=== PATIENT | male | born 1965 | race Caucasian/White ===

== ENCOUNTER 2021-10-16 22:33 | Emergency (ER) | payer BC ==
[2021-10-17 01:09] LABS: HEMOGLOBIN 14.1 gm/dl (14.0-17.5); RED BLOOD COUNT 4.66 M/UL (4.20-5.50); WHITE BLOOD COUNT 14.7 K/UL (4.5-11.0)
[2021-10-17 01:32] LABS: BUN/CREATININE RATIO 19 (0-10)
[2021-10-17] MEDS ORDERED: BACTRIM DS TAB1 EACH PO (02:42)
== END 2021-10-17 02:49 | disposition home or self-care (01) ==
LOC: ER1 22:33
PROVIDERS: Student in an Organized Health Care Education/Training Program
DX: N39.0 Urinary tract infection, site not specified (principal); I10 Essential (primary) hypertension; Z85.46 Personal history of malignant neoplasm of prostate; Z20.822 Contact with and (suspected) exposure to COVID-19
CPT/HCPCS: 0240U; 80053; 81001; 85025; 99283